=== PATIENT | male | born 1985 | race Asian ===

== ENCOUNTER 2025-02-09 09:02 | Inpatient (IN) | payer OTHER ==
[~2025-02-09] VITALS: Ht 165.1 cm; Wt 68.0 kg
[2025-02-09 10:10] LABS: CALCIUM, TOTAL 9.0 mg/dL (8.8-10.5); CREATININE 0.64 mg/dL (0.60-1.30); GLOMERULAR FILTR. RATE CALC > 60 mL/min (>60); GLUCOSE,RANDOM 133 mg/dL (70-110); PLATELET COUNT (AUTO) 267 K/uL (150-450); RED BLOOD CELL COUNT(AUTO) 5.63 MIL/uL (4.50-5.90); RED CELL DISTRIBUTION WIDTH 13.2 % (11.5-14.5); SODIUM SERUM 138 mmol/L (136-145); UREA NITROGEN, BLOOD 18 mg/dL (7-18); WHITE BLOOD COUNT (AUTO) 11.4 K/uL (4.5-11.0)
[2025-02-09 11:36] LABS: APPEARANCE,URINE CLEAR (CLEAR); GLUCOSE, URINE (UA) NEGATIVE (NEGATIVE); LEUKOCYTE ESTERASE ,URINE NEGATIVE (NEGATIVE); NITRATE,URINE NEGATIVE (NEGATIVE); OCCULT BLOOD,URINE NEGATIVE (NEGATIVE); PH,URINE DRUG SCREEN 7.0 (5.0-8.0); SPECIFIC GRAVITIY, URINE 1.028 (1.003-1.030)
[2025-02-09 11:40] LABS: ALCOHOL, URINE DRUG SCREEN NEGATIVE (NEGATIVE); AMPHET/METH SCREEN,URINE NEGATIVE (NEGATIVE); BARBITURATE SCREEN, URINE NEGATIVE (NEGATIVE); CANNABINOID SCREEN,URINE NEGATIVE (NEGATIVE); COCAINE SCREEN,URINE POSITIVE (NEGATIVE); METHADONE SCREEN, URINE NEGATIVE (NEGATIVE)
[2025-02-09] MEDS ORDERED: MAGNESIUM HYDROXIDE SUSPENSION 30 ML UDCUP PO PRN (13:00)
[2025-02-09] MEDS: SODIUM CHLORIDE 0.9% 1,000 ML IV ONE (13:45)
[2025-02-09] MEDS: ACETAMINOPHEN 325 MG TABLET PO PRN (20:33)
[2025-02-09 21:53] VITALS: BP 155/91; PULSE 89; RESP 20; TEMP 98.1; O2SAT 100
[2025-02-09] MEDS: ZOLPIDEM TARTRATE 5 MG TABLET PO PRN (21:59)
[2025-02-10] MEDS: ONDANSETRON HCL 4 MG/2 ML VIAL IVP PRN (02:50)
[2025-02-10 05:23] VITALS: BP 156/98; PULSE 83; RESP 20; TEMP 98.4; O2SAT 96
[2025-02-10] MEDS: LORazepam 2 MG/ML VIAL IVP ONE (05:40)
[2025-02-10 07:59] VITALS: BP 157/86; PULSE 76; RESP 18; TEMP 98.6; O2SAT 100
[2025-02-10] MEDS: FAMOTIDINE 20 MG TABLET PO SCH (09:00)
[2025-02-10 19:39] VITALS: BP 139/91; PULSE 85; RESP 20; TEMP 98.4; O2SAT 97
[2025-02-11] MEDS: MELATONIN 3 MG TABLET PO PRN (03:45)
[2025-02-11 04:27] VITALS: BP 144/97; PULSE 90; RESP 20; TEMP 98.4; O2SAT 100
[2025-02-11 05:20] LABS: TROPONIN I-HIGH SENSITIVITY 7 ng/L (<76)
[2025-02-11] MEDS: PB/HYOSCY/ATR/SCOP/LIDO/MAALOX 55 ML BOTTLE PO ONE (06:44)
[2025-02-11] MEDS: LIDOCAINE 5% 36 GM OINTMENT TP ONE (06:45)
[2025-02-11 08:10] VITALS: BP 153/94; PULSE 84; RESP 20; TEMP 98.4; O2SAT 99
[2025-02-11 12:22] VITALS: BP 154/94; PULSE 85; RESP 20; TEMP 98.2; O2SAT 100
[2025-02-11 17:09] VITALS: BP 145/85; PULSE 84; RESP 20; TEMP 98.2; O2SAT 100
[2025-02-11 20:00] VITALS: BP 129/82; PULSE 82; RESP 18; TEMP 99; O2SAT 99
[2025-02-12 04:00] VITALS: BP 137/91; PULSE 88; RESP 18; TEMP 98.6; O2SAT 99
[2025-02-12 08:00] VITALS: BP 137/93; PULSE 73; RESP 19; TEMP 98.6; O2SAT 100
[2025-02-12] MEDS: NICOTINE 14 MG/24 HOUR PATCH TD SCH (10:18)
[2025-02-12 20:00] VITALS: BP 152/90; PULSE 118; RESP 20; TEMP 99; O2SAT 99
[2025-02-13 04:00] VITALS: BP 133/85; PULSE 99; RESP 18; TEMP 97.5; O2SAT 100
[2025-02-13 08:22] VITALS: BP 142/92; PULSE 94; RESP 18; TEMP 98.4; O2SAT 100
[2025-02-13] MEDS ORDERED: ACET-2247 PO (11:27)
[2025-02-13] MEDS ORDERED: MAGN-169 PO (11:27)
== END 2025-02-13 13:26 | DRG 897 ==
LOC: EMS 09:02 → EDH 12:46 → 6N 21:44
PROVIDERS: ADMIT Internal Medicine; ATTEND Internal Medicine
DX: F11.93 Opioid use, unspecified with withdrawal (principal); F15.93 Other stimulant use, unspecified with withdrawal
CPT/HCPCS: 71045; 80048; 80307; 81003; 83690; 84484; 85025; 93005; 99285; J2060; J2405; J7030; 36415-L1; 36415-TC